=== PATIENT | male | born 1945 | race Caucasian/White ===

== ENCOUNTER 2016-06-23 06:11 | Day surgery (SDC) | payer MEDICARE, OTHER ==
[~2016-06-23] VITALS: Ht 182.9 cm; Wt 71.2 kg
[~2016-06-23 06:11] MED LIST: ALFU10TA7 PO; CARB-47 PO; MULT-933 PO; RASA1TAB2 PO; SAW450CA4 PO; SILD100T; SUCR1TAB20 PO
--- OUTSIDE RECORDS SUMMARY | 2016-06-23 06:15 | XMS REPORT | Summary of Care ---
Author Author Jaylen Gustafson M.D. Organization Unknown Address [address] [place] [address] JAG Purvis [address] Phone Unavailable Care Team Providers Care Equip Maint Eng Name Role Phone Jaylen Gustafson M.D. Unavailable Unavailable Sammy Monte M.D. Unavailable Unavailable Srikanth Dominguez Unavailable Unavailable Unavailable Unavailable Functional Status Name Dates Details Functional status health issues are not documented Status: Name Dates Details Cognitive status health issues are not documented Status: Problems Name Dates Details Prostate disorder (602.9, N42.9) Status: Active Muscle spasm (728.85, M62.838) Status: Active Dystonia (781.0, G24.9) Status: Active BPH with obstruction/lower urinary tract symptoms (600.01, N40.1) Status: Active Parkinson's disease (332.0, G20) Status: Active Medications Name Dates Details Carbidopa-Levodopa 25-100 MG Oral Tablet Take 1/2 tablet 3 times daily * Start 12-Dec-2014 Active Azilect 1 MG Oral Tablet TAKE 1 TABLET DAILY. * Refills: 0 Mike Monte M.D. Start 12-Dec-2014 Active Sucralfate 1 GM Oral Tablet TAKE 1 TABLET 4 times daily * Refills: 0 Mike Monte M.D. Start 12-Dec-2014 Active Saw Sylmar 450 MG Oral Capsule Take 1 capsule twice daily * Refills: 0 Mike Monte M.D. Start 12-Dec-2014 Active Alfuzosin HCl ER 10 MG Oral Tablet Extended Release 24 Hour TAKE 1 TABLET DAILY. * Refills: 0 Lavell Verdugo, Mike Haskins Start 12-Dec-2014 Active Viagra 50 MG Oral Tablet TAKE 1 TABLET DAILY 1 HOUR BEFORE NEEDED * Refills: 0 Lavell Verdugo, Mike Haskins Start 12-Dec-2014 Active Multivitamin Men Oral Tablet TAKE 1 TABLET DAILY. * Refills: 0 Jaylen Gustafson M.D. Start 20-Jan-2016 Active Allergies and Adverse Reactions Name Dates Details No Known Drug Allergies (Allergy) Status: Active Past Medical History Name Dates Details History of Childhood asthma (493.00, J45.909) Status: Resolved History of dizziness (V13.89, Z87.898) Status: Resolved History of Lewy body Parkinson's disease (332.0, G31.83) Status: Resolved History of malignant neoplasm of skin (V10.83, Z85.828) Status: Resolved History of Neck pain (723.1, M54.2) Status: Resolved History of seasonal allergies (V15.09, Z88.9) Status: Resolved Procedures Procedure Dates Details History of Colonoscopy History of Hernia Repair History of Diagnostic Esophagogastroduodenoscopy Procedures not documented Immunization Name Dates Details Immunizations not documented Family History Name Dates Details Family history of dementia (V17.2, Z81.8) Status: Active Name Dates Details Family history of skin cancer (V16.8, Z80.8) Status: Active Social History Name Dates Details - Status: Name Dates Details Never smoker Vital Signs Date Test Result Details 20-Jan-2016 15:17 BP Systolic 117 mm[Hg] Status: Comments: Location: ; Position: BP Diastolic 75 mm[Hg] Status: Comments: Location: ; Position: Heart Rate 74 /min Status: Comments: Location: ; Height 72 in Status: Weight 165 lb Status: Body Mass Index Calculated 22.38 kg/m2 Status: Body Surface Area Calculated 1.96 m2 Status: Results Date Description Value Details Results not documented Plan of Care Name Dates Details Planned Observations Planned Goals not documented Planned Encounters Appointment; Provider: Jaylen Gustafson M.D. On 20-Jan-2017 15:45 Appointment; Provider: Mike Monte M.D. On 23-May-2016 15:00 Instructions Name Dates Details Instructions not documented Encounters Appointment; iMke Monte M.D. Encounter Diagnosis: Problem not documented On 23-Nov-2015 14:00 Appointment; Mike Monte M.D. Encounter Diagnosis: Problem not documented On 19-May-2015 15:30 Appointment; Mike Monte M.D. Encounter Diagnosis: Problem not documented On 12-Dec-2014 11:00
--- OUTSIDE RECORDS SUMMARY | 2016-06-23 06:15 | XMS REPORT | Summary of Care ---
Author Author Mike Monte M.D. Organization Unknown Address Unknown Phone Unavailable Care Team Providers Care Skatesman Name Role Phone Lavell Verdugo, Sammy Unavailable Unavailable Srikanth Dominguez Unavailable Unavailable Unavailable Unavailable Functional Status Name Dates Details Functional status health issues are not documented Status: Name Dates Details Cognitive status health issues are not documented Status: Problems Name Dates Details Prostate disorder (602.9, N42.9) Status: Active Parkinson's disease (332.0, G20) Status: Active Medications Name Dates Details Carbidopa-Levodopa 25-100 MG Oral Tablet Take 1/2 tablet 3 times daily * Start 12-Dec-2014 Active Azilect 1 MG Oral Tablet TAKE 1 TABLET DAILY. * Refills: 0 Mike Monte M.D. Start 12-Dec-2014 Active Sucralfate 1 GM Oral Tablet TAKE 1 TABLET 3 times daily * Refills: 0 Mike Monte M.D. Start 12-Dec-2014 Active Saw [place] 450 MG Oral Capsule Take 1 capsule twice daily * Refills: 0 Mike Monte M.D. Start 12-Dec-2014 Active Folic Acid 1 MG Oral Tablet Take 1 tablet daily * Refills: 0 Mike Monte M.D. Start 12-Dec-2014 Active Alfuzosin HCl ER 10 MG Oral Tablet Extended Release 24 Hour TAKE 1 TABLET DAILY. * Refills: 0 Mike Monte M.D. Start 12-Dec-2014 Active Viagra 50 MG Oral Tablet TAKE 1 TABLET DAILY 1 HOUR BEFORE NEEDED * Refills: 0 Mike Monte M.D. Start 12-Dec-2014 Active Cyclobenzaprine HCl - 10 MG Oral Tablet TAKE 1 TABLET AT BEDTIME. * Quantity: 90 Refills: 3 Mike Monte M.D. * Start 25-Jun-2015 Active Allergies and Adverse Reactions Name Dates [...] Resolved Procedures Procedure Dates Details History of Hernia Repair Procedures not documented Immunization Name Dates Details Immunizations not documented Family History Name Dates Details Family history of dementia (V17.2, Z81.8) Status: Active Name Dates Details Family history of skin cancer (V16.8, Z80.8) Status: Active Social History Name Dates Details - Status: Name Dates Details Never smoker Vital Signs Date Test Result Details 23-Nov-2015 14:11 BP Systolic 124 mm[Hg] Status: Comments: Location: ; Position: BP Diastolic 82 mm[Hg] Status: Comments: Location: ; Position: Heart Rate 80 /min Status: Comments: Location: ; Weight 163 lb Status: Body Mass Index Calculated 24.78 kg/m2 Status: Body Surface Area Calculated 1.87 m2 Status: Results Date Description Value Details Results not documented Plan of Care Name Dates Details Planned Observations Planned Goals not documented Planned Encounters Appointment; Provider: Mike Monte M.D. On 23-May-2016 15:00 Instructions Name Dates Details Instructions not documented Encounters Appointment; Mike Monte M.D. Encounter Diagnosis: Problem not documented On 19-May-2015 15:30 Appointment; Mike Monte M.D. Encounter Diagnosis: Problem not documented On 12-Dec-2014 11:00
--- OUTSIDE RECORDS SUMMARY | 2016-06-23 06:15 | XMS REPORT | Continuity of Care Document ---
Author Author [facility] Organization [facility] Address Unknown Phone Unavailable Allergies Active Description Code Type Severity Reaction Onset Reported/Identified Relationship to Patient Clinical Status Yes No Known Medication Allergies NKMA N/A N/A Medications Problems Procedures Results Encounters ACCT No. Visit Date/Time Discharge Status Pt. Type Provider Facility Loc./Unit Complaint [id number] 01/02/2015 15:38:00 2014 23:59:00 DIS Outpatient Casey Whitfield [facility] 1-year [id number] 01/03/2014 15:40:00 2013 23:59:00 DIS Outpatient Casey Whitfield [facility] From IDX: [id number] YR RCK PSA
--- OUTSIDE RECORDS SUMMARY | 2016-06-23 06:16 | XMS REPORT | Referral Summary ---
Author Author [facility] Organization [facility] Address Unknown Phone Unavailable Care Team Providers Care Cinder Block Mason Name Role Phone Maximo Carter Primary Care Physician [phone] Encounter [facility] [id number] Date(s): 01/02/15 - 01/02/15 [facility] [address] [place] [address] JAG Purvis [address] Discharge Diagnosis: BPH with obstruction/lower urinary tract symptoms Discharge Diagnosis: BPH with obstruction/lower urinary tract symptoms Discharge Diagnosis: Parkinson's disease Discharge Disposition: 01-Home or Self Care Attending Physician: Casey Whitfield JR, MD Admitting Physician: Casey Whitfield JR, MD Vital Signs Most recent to 1 oldest [Reference Range]: Peripheral Pulse 68 bpm Rate [60-100 bpm] (01/02/15 3:43 PM) Blood Pressure 108/68 mmHg [90-140/60-90 mmHg] (01/02/15 3:43 PM) Problem List No data available for this section Allergies, Adverse Reactions, Alerts No Known Medication Allergies Medications alfuzosin 10 mg oral tablet, extended release See Instructions, TAKE 1 TABLET AT BEDTIME, # 90 tabs, eRx: [facility], TAKE 1 TABLET AT BEDTIME Start Date: 12/19/14 Status: Ordered ALFUZOSIN HCL ER TABS 10MG See Instructions, TAKE 1 TABLET AT BEDTIME, # 90 tabs, eRx: [facility], TAKE 1 TABLET AT BEDTIME Start Date: 10/08/14 Status: Ordered Azilect 1 mg oral tablet mg tabs, Oral, Daily, 0 Refill(s) Start Date: 01/02/15 Status: Ordered Carafate g, Oral, QIDACHS, 0 Refill(s) Start Date: 01/03/14 Status: Ordered Centrum Silver Daily, 0 Refill(s) Start Date: 01/02/15 Status: Ordered saw palmetto oral capsule 0 Refill(s) Start Date: 01/03/14 Status: Ordered Sinemet 25 mg-100 mg oral tablet tabs, Oral, TID, 0 Refill(s) Start Date: 01/02/15 Status: Ordered Viagra 100 mg oral tablet See Instructions, as needed for erectile dysfunction, 1 tabs orally as needed. 1 hour before sexual activity, # 30 tabs, 5 Refill(s), Pharmacy: [facility], 1 tabs orally as needed. 1 hour before sexual activity, PRN:as needed for er... Start Date: 01/02/15 Status: Ordered Results No data available for this section Immunizations No data available for this section Procedures Procedure Date Related Diagnosis Body Site Hernia repair Social History Social History Type Response Smoking Status Never smoker Assessment and Plan Extracted from: Title: Ambulatory Patient Education Author: Casey Whitfield JR, MD Date : 01/02/15 Follow Up With: Where: When: Jeff Carter [address] [place] [address] [address] [place] [address] Business (1) Within 3 to 5 days Comments: Follow Up With: Where: When: Casey [facility]; [place] [address] Business (1) In 1 year 01/03/2016 Comments: Extracted from: Title: Office Visit Note Author: Casey Whitfield JR, MD Date: 01/02/15 Assessment/Plan 1.BPH with obstruction/lower urinary tract symptoms, BPH with obstruction/ lower urinary tract symptoms continue alfuzosin. Recheck in my office in a year, PSA a week before next visit Ordered: Office Visit Level 3 Est 73015 2.Parkinson's disease continue carbidopa and levodopa and Azilect. For the erectile dysfunction continue Viagra 100 mg one hour prior to sexual intercourse. New prescription was called to the patient. Also I called a new prescription for the alfuzosin Orders: sildenafil, See Instructions, as needed for erectile dysfunction, 1 tabs orally as needed. 1 hour before sexual activity, # 30 tabs, 5 Refill(s), Pharmacy: [facility], 1 tabs orally as needed. 1 hour before sexual activity,PRN:as needed for er...
--- OUTSIDE RECORDS SUMMARY | 2016-06-23 06:16 | XMS REPORT | Continuity of Care Document ---
Author Author [facility] Organization [facility] Address Unknown Phone Unavailable Support Name Relationship Address Phone MALDONADO MORAN MD Caregiver [address] [place] [address] [address] [place] [phone] KAITY SANFORD MD Caregiver [facility]LAST[facility] SURGERY [address] [place] [address] YARA TERESA [address] [place] [address] ALEKSANDR SOTOMAYOR Next Of Kin [address] [place] [address] CP Insurance Providers Payer Name Policy Number Subscriber Name Relationship Medicare [id number] Rosa Isela Sotomayor 18 Self Medicare Supp Wps [id number] Rosa Isela Sotomayor 18 Self Advance Directives Directive Response Recorded Date/Time Ordered Resuscitation Status Full Code 04/22/14 10:22am Resuscitation Documents on File No 04/22/14 8:37am Problems No known problems or medical conditions. Medications Medication Dose Route Sig Days/Qty Instructions Order Date Discontinued Date Status Alfuzosin Hcl 10 Mg PO DAILY 03/02/09 Active Saw [place] Fruit 320 Mg PO DAILY 09/04/13 04/22/14 Discontinued [Carafate] 1 G PO FOUR TIMES DAILY 09/04/13 02/04/14 Discontinued [Viagra] 25 Mg PO NEEDED 09/04/13 02/04/14 Discontinued Sucralfate 1 G PO DAILY 02/04/14 Active Saw [place] Fruit 1 Cap PO DAILY 04/22/14 Active Carbidopa/Levodopa 0.5 Tab PO THREE TIMES DAILY/EMPTY STOMAC BEST ON AN EMPTY STOMACH. 04/22/14 Active Acetaminophen with Codeine 1-2 Tab PO Every 6 Hours PRN PAIN 20 Qty 12/28 Active Cephalexin 500 Mg PO THREE TIMES A DAY 6 Qty 04/23/14 Active Social History Social History Problem Response Recorded Date/Time Chewing Tobacco Status N 15 yrs ago 11/01/2011 11:51am Hx Substance Use No 04/22/2014 8:38am Hx Alcohol Use Y SELDOM 04/22/2014 8:38am Has the pt used tobacco in the last 12 months No 04/22/2014 8:38am Query Response Start Date Stop Date Smoking Status Never smoker Hospital Discharge Instructions No hospital discharge instructions. Plan of Care No plan of care. Functional Status No functional status results. Allergies, Adverse Reactions, Alerts Allergen Type Severity Reaction Status Last Updated NKDA Allergy Unknown Active 02/27/09 Immunizations Name Given Type Hx Influenza Vaccination Y Fall 2013 Historical Hx Pneumococcal Vaccination fall Historical Hx Influenza Vaccination fall Historical Vital Signs Acute Vital Signs Vital Response Date/Time Temperature (Fahrenheit) 97.9 deg F (96.8 - 99.1) Temperature (Calculated Celsius) 36.25507 degrees C (36.0 - 37.3) Temperature Source Temporal Pulse Rate (adult) 62 bpm (60 - 100) Respiratory Rate 16 breaths/min (10 - 20) O2 Sat by Pulse Oximetry 95 % (90 - 100) Oxygen Delivery Method Room Air Blood Pressure 113/70 mm Hg Blood Pressure Source Automatic Cuff Height 6 ft 0 in Weight 160 lb Body Mass Index 21.0 kg/m^2 Results Test Source Date Result Interp. Ref. Range Comments Prostate Specific Antigen December 28, 2012 4:18pm 0.99 NG/ML N 0-4.0 Prostate Specific Antigen Screen June 19, 2010 10:57am 1.40 NG/ML N 0- 4.0 Lab Scanned Report December 28, 2012 8:00pm LAB TEST FORM REQUEST [id number] - Helicobacter pylori Rapid Urease Gastric Biopsy October 20, 2011 9:05am Name: ROSA ISELA SOTOMAYOR Unit #: [id number] : 1945 Sex: M Loc / Svc: ROGERIO DOS: 03/20/14 Signed Report #: [id number] DIAGNOSTIC IMAGING REPORT TYPE OF EXAM: MRI BRAIN W/O CONTRAST Dictated By: WILFREDO ROSAS MD Indication: ITS.REASON: 332.0 PARKINSON'S; 784.0 HEAD ACHE MRI BRAIN W/O CONTRAST: Comparisons: None. Technique: Multiplanar, multisequence, MR imaging of the head without contrast was acquired. FINDINGS: The ventricles are of normal size, shape, and contour for the patient's age. There are small nonspecific punctate areas of T2-weighted and T2 FLAIR weighted signal abnormality in the deep frontoparietal white matter that most likely represent small vessel ischemic disease. This is of a degree that is considered to be normal for the patient's age. The brain stem, cerebellum, and cerebral hemispheres otherwise have a normal morphologic appearance as well as MR signal intensity on all pulse sequences. There are no areas of restricted diffusion on diffusion weighted imaging to suggest an acute infarct. There is no evidence of an intracranial mass lesion, intracranial hemorrhage, or hydrocephalus. The visualized portions of the orbits, calvarium, paranasal sinuses, and skull base demonstrate no significant abnormality. IMPRESSION: Unremarkable MRI of the head for the patient's age without contrast. . Procedures Procedure Status Date Provider(s) EXC F/E/E/N/L MAL+MRG 3.1-4 completed 02/05/14 KAITY SANFORD MD INTMD RPR FACE/MM 2.5 CM/< completed 02/05/14 KAITY SANFORD MD CMPLX RPR F/C/C/M/N/AX/G/H/F completed 02/05/14 KAITY SANFORD MD TISSUE EXAM BY PATHOLOGIST completed 02/05/14 PATH CONSULT INTRAOP 1 BLOC completed 02/05/14 PATH CONSULT INTRAOP ADDL completed 02/05/14"INJECTION, CEFAZOLIN SODIUM, 500 MG" completed 02/05/14"INJECTION, MIDAZOLAM HYDROCHLORIDE, PER 1 MG" completed 02/05/14474506"INJECTION, MIDAZOLAM HYDROCHLORIDE, PER 1 MG" completed 02/05/14699432"INJECTION, FENTANYL CITRATE, 0.1 MG" completed 02/05/14963801"INJECTION, FENTANYL CITRATE, 0.1 MG" completed 02/05/14074750"RINGERS LACTATE INFUSION, UP TO 1000 CC" completed 02/05/14 MRI BRAIN STEM W/O DYE completed 03/20/14 Excision of lesion completed 04/23/14 KAITY SANFORD MD Encounters Encounter Location Date/Time Registered Clinic [facility] 03/20/14 12:25pm
--- OUTSIDE RECORDS SUMMARY | 2016-06-23 06:16 | XMS REPORT | Continuity of Care Document ---
Author Author [facility] Organization [facility] Address Unknown Phone Unavailable Support Name Relationship Address Phone MALDONADO MORAN MD Caregiver [address] [place] [address] [address] [place] [phone] KAITY SANFORD MD Caregiver [facility] PLASTIC SURGERY [address] [place] [address] [address] [place] [address] ALEKSANDR SOTOMAYOR Next Of Kin [address] [place] [address] CP Insurance Providers Payer Name Policy Number Subscriber Name Relationship Medicare [id number] Rosa Isela Sotomayor 18 Self Medicare Supp Wps [id number] Rosa Isela Sotomayor 18 Self Advance Directives Directive Response Recorded Date/Time Ordered Resuscitation Status Full Code 02/04/14 12:46pm Resuscitation Documents on File No 02/04/14 9:42am Problems No known problems or medical conditions. Medications Medication Dose Route Sig Days/Qty Instructions Order Date Discontinued Date Status Alfuzosin Hcl 10 Mg PO DAILY 03/02/09 Active Saw [place] Fruit 320 Mg PO DAILY 09/04/13 Active [Carafate] 1 G PO FOUR TIMES DAILY 09/04/13 02/04/14 Discontinued [Viagra] 25 Mg PO NEEDED 09/04/13 02/04/14 Discontinued Sucralfate 1 G PO FOUR TIMES DAILY Take 1 tablet, by mouth, 4 times a day as needed. 02/04/14 Active Sildenafil Citrate 25 Mg PO NEEDED 02/04/14 Active Social History Social History Problem Response Recorded Date/Time Chewing Tobacco Status N 15 yrs ago 11/01/2011 11:51am Hx Substance Use No 02/04/2014 9:43am Hx Alcohol Use Y 1-2/DAY 02/04/2014 9:43am Has the pt used tobacco in the last 12 months No 02/04/2014 9:43am Query Response Start Date Stop Date Smoking [...] Vital Signs Vital Response Date/Time Temperature (Fahrenheit) 98.4 deg F (96.8 - 99.1) Temperature (Calculated Celsius) 36.86403 degrees C (36.0 - 37.3) Temperature Source Temporal Pulse Rate (adult) 62 bpm (60 - 100) Respiratory Rate 16 breaths/min (10 - 20) O2 Sat by Pulse Oximetry 94 % (90 - 100) Oxygen Delivery Method Room Air Blood Pressure 102/56 mm Hg Blood Pressure Source Automatic Cuff Height 6 ft 0 in Weight 163 lb Body Mass Index 22.0 kg/m^2 Results Test Source Date Result Interp. Ref. Range Comments Prostate Specific Antigen December 28, 2012 4:18pm 0.99 NG/ML N 0-4.0 Prostate Specific Antigen Screen June 19, 2010 10:57am 1.40 NG/ML N 0- 4.0 Lab Scanned Report December 28, 2012 8:00pm LAB TEST FORM REQUEST [id number] - Helicobacter pylori Rapid Urease Gastric Biopsy October 20, 2011 9:05am Procedures Procedure Status Date Provider(s) Excision of lesion completed 02/05/14 KAITY SANFORD MD
--- OUTSIDE RECORDS SUMMARY | 2016-06-23 06:16 | XMS REPORT | Continuity of Care Document ---
Author Author [facility]GARDO [facility] Organization [facility] Address Unknown Phone Unavailable Support Name Relationship Address Phone DORIE WASHINGTON MD Caregiver [address] [facility] [address] [place] [address] Unavailable VIANEY CHADWICK MD Caregiver [address] [facility] [address] [place] [address] Unavailable ALEKSANDR SOTOMAYOR Next Of Kin [address] [place], [place] [id number] CP Insurance Providers Guarantor Rosa Isela Sotomayor Address [address] [place] [address] Email DENIED/NO TO PT PORT Payer [employer] Medicare Supp Wps Policy Number [id number] Subscriber's Name Rosa Isela Sotomayor Relationship 18 Self Effective Date 10 Payer Medicare Policy Number [id number] Subscriber's Name Rosa Isela Sotomayor Relationship 18 Self Advance Directives Directive Response Recorded Date/Time Ordered Resuscitation Status Full Code, unverified 07/01/15 1:14pm Resuscitation Documents on File No 07/01/15 1:06pm DPOA for Healthcare Only No 07/01/15 1:06pm Problems Active Problems Medical Problem Onset Date Status Precordial chest pain Unknown Syncope and collapse Unknown Medications Current Home Medications Medication Dose Units Route Directions Days Qty Instructions Start Date Alfuzosin Hcl (Uroxatral) 10 Mg Tab.sr.24h 10 Mg Oral Daily 03/02 Aspirin (Aspir 81) 81 Mg Tablet. 1 Tab Oral Daily 30 Tablet 06/30 Carbidopa/Levodopa (Sinemet 25-100 Mg Tablet) 1 Each Tablet 0.5 Tab Oral Three Times Daily/Empty [place] BEST ON AN EMPTY STOMACH. 04/22/14 Multivitamin (Multi-Day Vitamins) 1 Each Tablet 1 Tab Oral Daily 30 Tablet 07/01/15 Nitroglycerin 0.4 Mg Tab.subl 0.4 Mg Sublingual as needed for Angina 07/01/15 Saw [place] Fruit (Saw [place]) 450 Mg Capsule 1 Cap Oral Daily 04/22/14 Sildenafil Citrate (Viagra) 100 Mg Tablet 50 Mg As Needed 06/30 Sucralfate (Carafate) 1 Gm Tablet 1 G Oral Daily 02/04/14 Past Home Medications Medication Directions Ordered Status Carafate , 1 G Oral Four Times Daily 09/04/13 Discontinued Saw [place] Fruit (Saw [place]) 100 Gm Powder, 320 Mg Oral Daily 09/04/13 Discontinued Viagra , 25 Mg Oral As Needed 09/04/13 Discontinued Social History Social History Problem Response Recorded Date/Time Onset Date Status Chewing Tobacco Status N 15 yrs ago 11/01/2011 11:51am Not Applicable Not Applicable Hx Substance Use No 07/01/2015 1:08pm Not Applicable Not Applicable Hx Alcohol Use Y SELDOM 07/01/2015 1:08pm Not Applicable Not Applicable Has the pt used tobacco in the last 12 months No 07/01/2015 1:08pm Not Applicable Not Applicable Query Response Start Date Stop Date Smoking Status Never smoker Hospital Discharge Instructions Instructions: Care Instructions: Reason for Hospitalization: Precordial pain, syncope/collapse,heart catheterization I was in the hospital because (patient own words): "TO HAVE A HEART CATH" Discharge Diet: Resume regular diet Discharge Activity: No driving or operating heavy machinery for 24 hours. Keep wrist straight, wear the wrist splint x 24 hours. Follow Up Appointments: FOLLOW UP WITH DR. WASHINGTON IN 1 MONTH AT THE MAY OFFICE, CALL FOR AN APPOINTMENT. Pending Lab / Results: No Pending Lab Patient Instructions: No bending wrist for 24 hours, keep wrist splint on. Wound/Incision Care: You may remove wrist dressing tomorrow. Notify Physician If: Any signs of infection at the wrist insertion site: redness, swelling, increased pain, swelling Condition at time of discharge: Good Plan of Care Discharge Date 07/01/15 7:18pm Instructions/Education Provided [facility] Heart Cath Trans Rad Prescriptions See Medication Section Functional Status Query Response Date Recorded Mobility Status Ambulatory July 01, 2015 1:14pm Assistive Devices None July 01, 2015 1:14pm Activity Limitations Syncope/fainting July 01, 2015 1:14pm Feeding Ability Independent July 01, 2015 1:14pm Toileting Ability Independent July 01, 2015 1:14pm Grooming Ability Independent July 01, 2015 1:14pm Dressing Ability Independent July 01, 2015 1:14pm Driving Ability Independent July 01, 2015 1:14pm Housework Ability Independent July 01, 2015 1:14pm Meal Preparation Ability Independent July 01, 2015 1:14pm Stair Climbing Ability Independent July 01, 2015 1:14pm Ability to complete ADL's impeded by No change July 01, 2015 1:14pm Cognitive/Perceptual Impairments Impaired vision July 01, 2015 1:14pm Visual Assistive Devices Glasses With patient July 01, 2015 1:14pm Preferred Method of Learning Hands on July 01, 2015 1:14pm Allergies, Adverse Reactions, Alerts Allergen Type Severity Reaction Status Last Updated NKDA Allergy Unknown Active 07/01/15 Immunizations Query Response on File Recorded Date/Time Hx Influenza Vaccination Y fall 201407/01/15 1:08pm Hx Pneumococcal Vaccination Y FEB 2015 07/01/15 1:08pm Hx Influenza Vaccination Y fall 201407/01/15 1:08pm Influenza Vaccine Hx fall 201407/01/15 1:00pm Vital Signs Acute Vital Signs Vital Response Date/Time Temperature (Fahrenheit) 97.5 deg F (96.8 - 99.1) 07/01/2015 4:15pm Temperature (Calculated Celsius) 36.04094 degrees C (36.0 - 37.3) 07/01/2015 4:15pm Temperature Source Oral 07/01/2015 4:15pm Pulse Rate (adult) 70 bpm (60 - 100) 07/01/2015 6:15pm Respiratory Rate 18 breaths/min (10 - 20) 07/01/2015 6:15pm O2 Sat by Pulse Oximetry 97 % (90 - 100) 07/01/2015 6:15pm Oxygen Delivery Method Room Air 07/01/2015 6:15pm Blood Pressure 104/69 mm Hg 07/01/2015 6:15pm Blood Pressure Source Automatic Cuff 07/01/2015 6:15pm Height (Feet) 5 feet 07/01/2015 1:01pm Height (Inches) 11.00 inches 07/01/2015 1:01pm Weight (Kilograms) 69.100 kg 07/01/2015 1:01pm Body Mass Index (BMI) 21.3 07/01/2015 1:01pm Results Laboratory Results Test Name Result Units Flags Reference Collection Date/Time Result Date/ Time Comments Urine Collection Type VOIDED-NOT CC-MIDSTR 06/30/2015 4:00pm 2015 4:33pm Urine Color YELLOW YELLOW 06/30/2015 4:00pm 06/30/2015 4:33pm Urine Turbidity CLEAR CLEAR 06/30/2015 4:00pm 06/30/2015 4:33pm Urine Specific [place] 1.010 L 1.015-1.025 06/30/2015 4:00pm 2015 4:33pm Urine pH 6.5 5.0-8.0 06/30/2015 4:00pm 06/30/2015 4:33pm Urine Leukocyte Esterase NEGATIVE NEGATIVE 06/30/2015 4:00pm 2015 4:33pm Urine Nitrite NEGATIVE NEGATIVE 06/30/2015 4:00pm 06/30/2015 4:33pm Urine Protein NEGATIVE NEGATIVE 06/30/2015 4:00pm 06/30/2015 4:33pm Urine Glucose (UA) NEGATIVE NEGATIVE 06/30/2015 4:00pm 06/30/2015 4: 33pm Urine Ketones NEGATIVE NEGATIVE 06/30/2015 4:00pm 06/30/2015 4:33pm Urine Urobilinogen 0.2 EU/DL NORMAL 06/30/2015 4:00pm 06/30/2015 4: 33pm Urine Bilirubin NEGATIVE NEGATIVE 06/30/2015 4:00pm 06/30/2015 4: 33pm Urine Blood NEGATIVE NEGATIVE 06/30/2015 4:00pm 06/30/2015 4:33pm Urine WBC NONE SEEN /HPF 0-5 06/30/2015 4:00pm 06/30/2015 4:46pm Urine RBC NONE SEEN /HPF 0-3 06/30/2015 4:00pm 06/30/2015 4:46pm Urine Squamous Epithelial Cells 0-5 06/30/2015 4:00pm 06/30/2015 4: 46pm Urine Bacteria NONE SEEN NEGATIVE 06/30/2015 4:00pm 06/30/2015 4: 46pm Urine Culture Indicated CULT NOT INDICATED 06/30/2015 4:00pm 2015 4:46pm White Blood Count 5.1 T/MM3 4.5-11.0 07/01/2015 1:32pm 07/01/2015 1: 38pm Red Blood Count 4.21 M/MM3 L 4.50-5.90 07/01/2015 1:32pm 07/01/2015 1: 38pm Hemoglobin 13.2 GM/DL L 13.5-17.5 07/01/2015 1:[facility] 07/01/2015 1:38pm Hematocrit 40.1 % L 41-53 07/01/2015 1: 07/01/2015 1:38pm Mean Corpuscular Volume 95.2 UM3 80-100 07/01/2015 1:[facility] 07/01/2015 1: 38pm Mean Corpuscular Hemoglobin 31.4 UUG 26-34 07/01/2015 1: 2015 1:38pm Mean Corpuscular Hemoglobin Concent 32.9 GM/DL 31-37 07/01/2015 1:[facility] 07/01/2015 1:38pm RDW Standard Deviation 43.0 FL 36.9-50.2 07/01/2015 1: 07/01/2015 1 :38pm Platelet Count 207 T/MM3 130-400 07/01/2015 1:[facility] 07/01/2015 1:38pm Mean Platelet Volume 9.7 UM3 9.4-12.4 07/01/2015 1:[facility] 07/01/2015 1: 38pm Neutrophils (%) (Auto) 61.3 % 33-66 07/01/2015 1:[facility] 07/01/2015 1: 38pm Lymphocytes (%) (Auto) 24.0 % 23-45 07/01/2015 1:[facility] 07/01/2015 1: 38pm Monocytes (%) (Auto) 12.1 % H 0-9.0 07/01/2015 1:[facility] 07/01/2015 1:38pm Eosinophils (%) (Auto) 2.0 % 0-4 07/01/2015 1:[facility] 07/01/2015 1:38pm Basophils (%) (Auto) 0.6 % 0-2 07/01/2015 1:[facility] 07/01/2015 1:38pm Immature Granulocyte % (Auto) 0.0 % 0.0-0.5 07/01/2015 1:[facility] 2015 1:38pm Absolute Neutrophils (auto) 3.1 T/MM3 1.8-7.7 07/01/2015 1:[facility] 2015 1:38pm Absolute Lymphocytes (auto) 1.2 T/MM3 1-4.8 07/01/2015 1:2015 1:38pm Absolute Monocytes (auto) 0.6 T/MM3 0-0.8 07/01/2015 1:07/01/2015 1:38pm Absolute Eosinophils (auto) 0.1 T/MM3 0-0.5 07/01/2015 1:2015 1:38pm Absolute Basophils (auto) 0.0 T/MM3 0-0.2 07/01/2015 1:07/01/2015 1:38pm Absolute Immature Granulocyte (auto 0.00 T/MM3 0.00-0.03 07/01/2015 1: 07/01/2015 1:38pm Prothromb Time International Ratio 1.09 0.81-1.09 07/01/2015 1:5207/01/2015 2:05pm THERAPUTIC RANGE=2.00-3.00 FOR ANTI-THROMBOSIS THERAPUTIC RANGE=2.50-3.50 FOR IMPLANTED VALVE Icterus Index < 2 0-7 07/01/2015 1:07/01/2015 2:10pm Chemistry Specimen Hemolysis < 15 0-25 07/01/2015 1:07/01/2015 2 :10pm 0-25: Specimen Exhibited No Hemolysis. Turbidity < 20 0-20 07/01/2015 1:pm 07/01/2015 2:10pm Sodium Level 140 MEQ/L 134-144 07/01/2015 1:07/01/2015 2:10pm Potassium Level 4.1 MEQ/L 3.6-5 07/01/2015 1:07/01/2015 2:10pm Chloride Level 102 MEQ/L 98-107 07/01/2015 1:07/01/2015 2:10pm Carbon Dioxide Level 30 MEQ/L 22-30 07/01/2015 1:07/01/2015 2: 10pm Anion Gap 8 MEQ/L 5-15 07/01/2015 1:pm 07/01/2015 2:10pm Blood Urea Nitrogen 13.0 MG/DL 9-20 07/01/2015 1:pm 07/01/2015 2: 10pm Creatinine 0.7 MG/DL L 0.8-1.5 07/01/2015 1:07/01/2015 2:10pm BUN/Creatinine Ratio 19 RATIO 6-26 07/01/2015 1:52pm 07/01/2015 2:10pm Glomerular Filtration Rate Calc 112 07/01/2015 1:52pm 07/01/2015 2: 10pm Glucose Level 96 MG/DL 75-110 07/01/2015 1:52pm 07/01/2015 2:10pm Calculated Osmolality 269 MOSM/KG 261-280 07/01/2015 1:52pm 07/01/2015 2:10pm Calcium Level 9.0 MG/DL 8.4-10.2 07/01/2015 1:52pm 07/01/2015 2:10pm Total Bilirubin 0.50 MG/DL 0.20-1.30 07/01/2015 1:52pm 07/01/2015 2: 10pm Alkaline Phosphatase 67 U/L 38-126 07/01/2015 1:52pm 07/01/2015 2:10pm Total Protein 7.1 G/DL 6.3-8.2 07/01/2015 1:52pm 07/01/2015 2:10pm Albumin 4.0 G/DL 3.5-5.0 07/01/2015 1:52pm 07/01/2015 2:10pm Globulin 3.1 G/DL 2.4-3.6 07/01/2015 1:52pm 07/01/2015 2:10pm Albumin/Globulin Ratio 1.3 RATIO 1.1-2.2 07/01/2015 1:52pm 07/01/2015 2 :10pm Aspartate Amino Transf (AST/SGOT) 33 U/L 17-59 07/01/2015 1:52pm 2015 2:10pm Alanine Aminotransferase (ALT/SGPT) 12 U/L L 21-72 07/01/2015 1:52pm 2:10pm Reason Tests Not Done HEMOLYZED SPECIMEN 07/01/2015 1:48pm 2015 1:49pm Tests Not Done CMP, INR, LIPID 07/01/2015 1:48pm 07/01/2015 1:49pm Specimen Comment (Misc) LAB TO RECOLLECT 07/01/2015 1:48pm 2015 1:49pm Procedures No known history of procedures. Encounters Encounter Location Arrival/Admit Date Discharge/Depart Date Attending Provider Departed Clinic [facility] 07/01/15 12:34pm 07/01/15 7:18pm DORIE WASHINGTON MD Registered Referred [facility] 06/30/15 4:28pm VIANEY CHADWICK MD Recent Diagnosis Precordial chest pain Syncope and collapse
--- OUTSIDE RECORDS SUMMARY | 2016-06-23 06:16 | XMS REPORT | Summary of Care ---
Author Author Mike Monte M.D. Organization Unknown Address Unknown Phone Unavailable Care Team Providers Care Warp Worker Name Role Phone Jaylen Gustafson M.D. Unavailable [...] Dates Details Carbidopa-Levodopa 25-100 MG Oral Tablet TAKE 1 TABLET 3 times daily Quantity: 270 Mike Monte M.D. Start 12-Dec-2014 Active Azilect 1 MG Oral Tablet TAKE 1 TABLET DAILY. * Refills: 0 Mike Monte M.D. Start 12-Dec-2014 Active Sucralfate 1 GM Oral Tablet TAKE 1 TABLET 4 times daily * Refills: 0 Mike Monte M.D. Start 12-Dec-2014 Active Saw [place] 450 MG Oral Capsule Take 1 capsule [...] 0 Mike Monte M.D. Start 12-Dec-2014 Active Multivitamin Men Oral Tablet TAKE 1 TABLET DAILY. * Refills: 0 Jaylen Gustafson M.D. Start 20-Jan-2016 Active Allergies and Adverse Reactions Name Dates Details No Known Drug Allergies (Allergy) Status: Active Past Medical History Name Dates Details History of Childhood asthma (493.00, J84.909) Status: Resolved History of dizziness (V13.89, Z87.898) [...] smoker Vital Signs Date Test Result Details 23-May-2016 15:24 BP Systolic 120 mm[Hg] Status: Comments: Location: ; Position: BP Diastolic 70 mm[Hg] Status: Comments: Location: ; Position: Heart Rate 60 /min Status: Comments: Location: ; Weight 162 lb Status: Body Mass Index Calculated 21.97 kg/m2 Status: Body Surface Area Calculated 1.95 m2 Status: Results Date Description Value Details Results not documented Plan of Care Name Dates Details Planned Observations Planned Goals not documented Planned Encounters Appointment; Provider: Mike Monte M.D. On 21-Nov-2016 10:30 Interventions Provided Medication Changes* Carbidopa-Levodopa 25-100 MG Oral Tablet - Renew Instructions Name Dates Details Instructions not documented Encounters Appointment; Jaylen Gustafson M.D. Encounter Diagnosis: Problem not documented On 20-Jan-2016 14:45 Appointment; Mike Monte M.D. Encounter Diagnosis: Problem not documented On 23-Nov-2015 14:00 Appointment; Mike Monte M.D. Encounter Diagnosis: Problem not documented On 19-May-2015 15:30 Appointment; Mike Monte M.D. Encounter Diagnosis: Problem not documented On 12-Dec-2014 11:00
--- OUTSIDE RECORDS SUMMARY | 2016-06-23 06:16 | XMS REPORT | Summary of Care ---
Author Author Mike Monte M.D. Organization Unknown Address [address] [place], [place] [id number] Phone Unavailable Care Team Providers Care Scrap Iron Loader Name Role Phone Lavell Verdugo, Sammy Unavailable Unavailable Srikanth Dominguez PP Unavailable Functional Status Functional Status Health Issues* Name Dates Details Functional status health issues are not documented Status: Cognitive Status Health Issues* Name Dates Details Cognitive status health issues are not documented Status: Problems Name Dates Details Prostate disorder (602.9, N42.9) Status: Active Parkinson's disease (332.0, G20) Status: Active Medications Name Dates Details Carbidopa-Levodopa 25-100 MG Oral Tablet TAKE 1 TABLET 3 TIMES DAILY. Mike Monte M.D.* Started 12-Dec-2014 ActiveAzilect 1 MG Oral Tablet TAKE 1 TABLET DAILY. * Refills: 0 Mike Monte M.D.* Started 12-Dec-2014 ActiveSucralfate 1 GM Oral Tablet TAKE 1 TABLET 3 times daily * Refills: 0 Mike Monte M.D.* Started 12-Dec-2014 ActiveSaw [place] 450 MG Oral Capsule Take 1 capsule twice daily * Refills: 0 Mike Monte M.D.* Started 12-Dec-2014 ActiveFolic Acid 1 MG Oral Tablet Take 1 tablet daily * Refills: 0 Mike Monte M.D.* Started 12-Dec-2014 ActiveVitamin D3 2000 UNIT Oral Tablet Take 1 tablet daily * Refills: 0 Mike Monte M.D.* Started 12-Dec-2014 ActiveAlfuzosin HCl ER 10 MG Oral Tablet Extended Release 24 Hour TAKE 1 TABLET DAILY. * Refills: 0 Mike Monte M.D.* Started 12-Dec-2014 ActiveBaclofen 10 MG Oral Tablet TAKE 1 TABLET Bedtime * Quantity: 30 Refills: 0 Mike Monte M.D.* Started 12-Dec-2014 ActiveViagra 50 MG Oral Tablet TAKE 1 TABLET DAILY 1 HOUR BEFORE NEEDED * Refills: 0 Mike Monte M.D.* Started 12-Dec-2014 Active Allergies and Adverse Reactions Name Dates Details No Known Drug Allergies Status: Active Past Medical History Name Dates Details History of Childhood asthma (493.00, J45.909) Status: Resolved History of dizziness (V13.89, Z87.898) Status: Resolved History of Lewy body Parkinson's disease (332.0, G20) Status: Resolved History of malignant neoplasm of skin (V10.83, Z85.828) Status: Resolved History of Neck pain (723.1, M54.2) Status: Resolved History of seasonal allergies (V15.09, Z88.9) Status: Resolved Procedures Procedure Dates Details History of Hernia Repair Procedures not documented Immunization Name Dates Details Immunizations not documented Family History Mother* Name Dates Details Family history of dementia (V17.2, Z81.8) Status: Active Father* Name Dates Details Family history of skin cancer (V16.8, Z80.8) Status: Active Social History Name Dates Details Smoking Status* Never smoker Vital Signs Date Test Result Details 12-Dec-2014 11:33 Height 68 in Status: Body Mass Index Calculated 23.57 kg/m2 Status: Body Surface Area Calculated 1.83 m2 Status: 12-Dec-2014 11:28 BP Systolic 110 mm[Hg] Status: BP Diastolic 60 mm[Hg] Status: Heart Rate 90 /min Status: Weight 155 lb Status: Results Date Description Value Details Results not documented Plan of Care Planned Observations* Name Dates Details Planned Goals not documented Goal Planned Encounters* Appointment; Provider: Mike Monte On 21-Apr-2015 10:30 Instructions * Instructions not documented Encounters Appointment; Mike Monte Encounter Diagnosis: Problem not documented On 12-Dec-2014 11:00
--- OUTSIDE RECORDS SUMMARY | 2016-06-23 06:16 | XMS REPORT | Summary of Care ---
Author Author Mike Monte M.D. Organization Unknown Address [address] [place], [place] [id number] Phone Unavailable Care Team Providers Care Kaiawhina Kohanga Reo Name Role Phone Lavell Verdugo, Sammy Unavailable [...] Take 1/2 tablet 3 times daily * Started 12-Dec-2014 ActiveAzilect 1 MG Oral Tablet TAKE 1 TABLET DAILY. * Refills: 0 Mike Monte M.D.* Started 12-Dec-2014 ActiveSucralfate 1 GM Oral Tablet TAKE 1 TABLET 3 times daily * Refills: 0 Mike Monte M.D.* Started 12-Dec-2014 ActiveSaw [place] 450 MG Oral Capsule Take 1 capsule [...] smoker Vital Signs Date Test Result Details 19-May-2015 15:23 BP Systolic 82 mm[Hg] Status: BP Diastolic 62 mm[Hg] Status: Heart Rate 70 /min Status: Weight 158 lb Status: Body Mass Index Calculated 24.02 kg/m2 Status: Body Surface Area Calculated 1.85 m2 Status: Results Date Description Value Details Results not documented Plan of Care Planned Observations* Name Dates Details Planned Goals not documented Goal Planned Encounters* Appointment; Provider: Mike Monte On 23-Nov-2015 14:00 Instructions * Instructions not documented Encounters Appointment; Mike Monte Encounter Diagnosis: Problem not documented On 19-May-2015 15:30 Appointment; Mike Monte Encounter Diagnosis: Problem not documented On 12-Dec-2014 11:00
--- OUTSIDE RECORDS SUMMARY | 2016-06-23 06:16 | XMS REPORT | Continuity of Care Document ---
Author Author [facility] Organization [facility] Address Unknown Phone Unavailable Support Name Relationship Address Phone MALDONADO MORAN MD Caregiver [address] [place] [address] [address] [place] [phone] GAMAL SCHMID MD Caregiver [facility] [address] [place] [address] YARA TERES[address] [place] [phone] ALEKSANDR SOTOMAYOR Next Of Kin [address] [place] [address] CP Insurance Providers Payer Name Policy Number Subscriber Name Relationship Medicare [id number] Rosa Isela Sotomayor 18 Self Medicare Supp Wps [id number] Rosa Isela Sotomayor 18 Self Advance Directives Directive Response Recorded Date/Time Ordered Resuscitation Status Full Code 09/04/13 4:59pm Problems No known problems or medical conditions. Medications Medication Dose Route Sig Days/Qty Instructions Order Date Discontinued Date Status Alfuzosin Hcl 10 Mg PO DAILY 03/02/09 Active Saw [place] Fruit 320 Mg PO DAILY 09/04/13 Active [Carafate] 1 G PO FOUR TIMES DAILY 09/04/13 Active [Viagra] 25 Mg PO NEEDED 09/04/13 Active Social History Social History Problem Response Recorded Date/Time Smoking Status Never smoker 09/04/2013 1:48pm Chewing Tobacco Status N 15 yrs ago 11/01/2011 11:51am Hx Substance Use No 09/04/2013 1:48pm Hx Alcohol Use Y 1-2/DAY 09/04/2013 1:48pm Has the pt used tobacco in the last 12 months No 09/04/2013 1:48pm Query Response Start Date Stop Date Smoking Status Never smoker Hospital Discharge Instructions No hospital discharge instructions. Plan of Care No plan of care. Functional Status No functional status results. Allergies, Adverse Reactions, Alerts Allergen Type Severity Reaction Status Last Updated NKDA Allergy Unknown Active 02/27/09 Immunizations Name Given Type Hx Influenza Vaccination Y Fall 2012 Historical Hx Pneumococcal Vaccination Y Fall 2009 Historical Hx Influenza Vaccination Y Fall 2012 Historical Vital Signs Acute Vital Signs Vital Response Date/Time Temperature (Fahrenheit) 97.4 deg F (96.8 - 99.1) Temperature (Calculated Celsius) 36.33239 degrees C (36.0 - 37.3) Temperature Source Temporal Pulse Rate (adult) 64 bpm (60 - 100) Respiratory Rate 16 breaths/min (10 - 20) O2 Sat by Pulse Oximetry 96 % (90 - 100) Blood Pressure 130/85 mm Hg Blood Pressure Source Automatic Cuff Height 6 ft 0 in Weight 153 lb Body Mass Index 20.0 kg/m^2 Results Test Source Date Result Interp. Ref. Range Comments Prostate Specific Antigen December 28, 2012 4:18pm 0.99 NG/ML N 0-4.0 Prostate Specific Antigen Screen June 19, 2010 10:57am 1.40 NG/ML N 0- 4.0 Lab Scanned Report December 28, 2012 8:00pm LAB TEST FORM REQUEST [id number] - Helicobacter pylori Rapid Urease Gastric Biopsy October 20, 2011 9:05am Procedures Procedure Status Date Provider(s) EGD (esophagogastroduodenoscopy) completed 09/05/13 GAMAL SCHMID MD
[2016-06-23 06:20] VITALS: BP 101/56; PULSE 73; RESP 16; TEMP 97.7; O2SAT 96; Ht 182.9 cm; Wt 71.2 kg
[2016-06-23 06:48] VITALS: PULSE 74; RESP 16
[2016-06-23] MEDS ORDERED: LIDOCAINE 1% (10mg/ml) 2ml SDV INJ ONE (07:00)
[2016-06-23] MEDS ORDERED: LR 1,000 ML IV SCH (07:00)
--- NOTE | 2016-06-23 07:34 | ANESPREOP ---
Anesthesia Record Date and Time DATE: 06/23/16 TIME: 07:32 Pre-Op Diagnosis juan j [facility]. [facility] Proposed Surgical Procedure EGD & COLONOSCOPY Allergies: Coded Allergies: NKDA (Verified Allergy, Unknown, 07/01/15) Ht/Wt/BMI Height: 6 ' 0.00 " Weight: 71.200 kg BMI: 21.3 kg/m2 Vital Signs Date Time Temp Pulse Resp B/P Pulse Ox O2 Delivery O2 Flow Rate FiO2 06/23/16 06:48 74 16 06/23/16 06:20 97.7 101/56 96 Room Air Medications Inpatient Medications Current Medications Medications (Trade) Dose Ordered Sig/Srinivas Start Time Stop Time Status Last Admin Dose Admin Lactated Ringer's (Lactated Ringers) 1,000 ml @ 50 mls/hr Q20H 06/23/16 07:00 06/23/16 07:30 50 MLS/HR Alfuzosin Hcl (Uroxatral) 10 Mg Tab.sr.24h, 10 MG PO DAILY, (Reported) Last Taken: on 06/22/16 1900 Carbidopa/Levodopa (Sinemet 25-100 mg Tablet) 1 Each Tablet, 2.5 TAB PO TID, (Reported) BEST ON AN EMPTY STOMACH. Last Taken: on 06/23/16 0500 Multivitamin (Multi-Day Vitamins) 1 Each Tablet , 1 TAB PO DAILY, (Reported) Last Taken: on 06/21/16 Rasagiline Mesylate (Azilect) 1 Mg Tablet, 1 TAB PO DAILY, (Reported) Last Taken: on 06/23/16 0500 Saw [place] Fruit (Saw [place]) 450 Mg Capsule, 1 CAP PO DAILY, (Reported) Last Taken: on 06/21/16 Sildenafil Citrate (Viagra) 100 Mg Tablet, 50 MG PRN , (Reported) Last Taken: on 06/21/16 Sucralfate (Carafate) 1 Gm Tablet, 1 G PO QID, ( Reported) Last Taken: on 06/22/161999 Currently on Beta Trisha: No Medical/Surgical History Anesthesia PMH: Reports: Arthritis, Asthma (HX OF A CHILD, NOTHING IN ADULT YEARS), Cancer (SKIN SCC), Hiatal Hernia, Reflux, Denies: *Angina (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 smoked today?: No Use Chewing Tobacco?: No Second Hand Exposure: No Substance Use Type: does not use Alcohol Intake: daily Last Drink: unknown Past Surgical History Orthopedic Surgeries: No Abdominal Surgeries: Yes - B ING HERNIA Genitourinary Surgeries: Yes - ELECTROFULGURATION PENILE WARTS 2005 Cardiac Surgeries: No Endocrine Surgeries: No Reproductive Surgeries: No Neurological Surgeries: No Ear Surgeries: No Nose Surgeries: Yes - RT MAXILLARY SINUS W/ TITANIUM PLATES AGE 58 Throat Surgeries: Yes - EGD Other Surgeries: Yes - COLONOSCOPY, SKIN CA REMOVED Anesthesia Adverse Reactions: FOUND none Family Hx of Anesthesia Advers: none Hx of Motion Sickness: No Pertinent Findings EKG Rhythm: Sinus Rhythm Physical Exam Respiratory: Bilat breath sounds equal, Lungs clear Cardiovascular: FOUND Regular rate, rhythm, FOUND No murmur Airway Assessment Mallampati Score: III TMD: 3 Fingerbreadths Neck Extension: Good Overall Assessment: No Airway Concerns ASA: 2 Plan Anesthesia Plan: TIVA Discussion Discussed risks/options/alternatives of anesthesia and questions answered. Patient consents. Nursing pain assessment noted. Present: Spouse Attestation Statement Prior to the delivery of any anesthetic medication, I examined the patient, developed the plan, obtained the patient's consent and discussed the risk and benefits of the procedure with the patient/guardian. NICCI PRADO CRNA June 23, 2016 07:34
[2016-06-23] MEDS ORDERED: LIDOCAINE 1% (10mg/ml) 2ml SDV ONE (07:48)
[2016-06-23] MEDS ORDERED: PROPOFOL 500mg 50 ML IV ONE (07:48)
[2016-06-23] MEDS ORDERED: LIDOCAINE VISCOUS 2% Oral Soln 15ml UD ONE (08:07)
[2016-06-23 08:48] VITALS: BP 97/57; PULSE 60; RESP 11; TEMP 97.1; O2SAT 96
[2016-06-23 09:03] VITALS: BP 108/66; PULSE 58; RESP 16; O2SAT 97
[2016-06-23 09:18] VITALS: BP 121/70; PULSE 56; RESP 16; TEMP 97.6; O2SAT 98
[2016-06-23 09:33] VITALS: BP 107/60; PULSE 60; RESP 14; O2SAT 97
--- NOTE | 2016-06-23 09:36 | ANESPO ---
Post-Op Note Date 06/23/16 Time: 09:35 Status Pt Participated in Evaluation: Pt participated in person Vital Signs Date Time Temp Pulse Resp B/P Pulse Ox O2 Delivery O2 Flow Rate FiO2 06/23/16 09:18 97.6 56 16 121/70 98 Room Air Respiratory Function: Airway patent, Regular respirations Cardiovascular Function: Regular pulse Mental Status: Alert/oriented Pain Level Intensity: 0 Hydration: Taking po fluids Complications during Recovery None apparent Post-Anesthesia Notes pt. [email or web address] well Follow-Up Instructions Instructions Per Surgeon Additional Information none NICCI PRADO CRNA June 23, 2016 09:36
--- NOTE | 2016-06-23 13:43 | OPNOTEF ---
DATE OF PROCEDURE: June 23, 2016 SURGEON: Srikanth Dominguez MD PREOPERATIVE DIAGNOSES Colorectal cancer surveillance/heme-positive stool. POSTOPERATIVE DIAGNOSES Colorectal cancer surveillance/heme-positive stool, colonic polyp located at 30 cm from the anal verge, mild diverticulosis. PROCEDURE: Colonoscopy with polypectomy via hot forceps technique. ANESTHESIA: TIVA. BRIEF HISTORY/INDICATIONS Theodore is a 70-year-old male patient of mine who was seen in the office for multiple issues. We found that he was mildly anemic. He also had heme-positive stool. Decision was made to proceed with combination EGD colonoscopy. Please refer to office notes for the details. FINDINGS Upon colonoscopy there was no evidence for angiodysplastic lesions or florencia malignancies. The patient was found to have mild diverticulosis. The patient was found to have a colonic polyp at 30 cm from the anal verge. No other significant pathology. DESCRIPTION OF PROCEDURE After informed consent was obtained, the patient was brought to the endoscopy suite and placed on the table in the left lateral decubitus position. The patient subsequently underwent total intravenous anesthesia by the nurse website project manager per my request. Next, a digital rectal examination was performed; normal sphincter tone. No rectal masses were appreciated. An Olympus colonoscope was inserted in the anus and advanced with the lumen of the colon under direct visualization at all times until the cecum was ascertained. Triangulation of the tenia coli, ileocecal valve and appendiceal lumen were all visualized. The scope was then slowly withdrawn, again while maintaining visualization of the lumen at all times. As stated above, the entire colon was without evidence for angiodysplastic lesions or florencia malignancies. The patient was found to have mild diverticulosis. The patient was found to have one colonic polyp at 30 cm from the anal verge. Photographs were obtained for documentation. The scope continued to be withdrawn until it was removed from the patient's anal verge. The patient tolerated the procedure without difficulty and was sent back to the preoperative area in stable condition. We did not find a cause for his anemia. He did have some impressive internal hemorrhoids which could explain the heme-positive stool. No significant pathology on this colonoscopy. [facility]
--- NOTE | 2016-06-23 14:00 | OPNOTEF ---
DATE OF PROCEDURE: 06/23/2016 SURGEON: Srikanth Dominguez MD PREOPERATIVE DIAGNOSIS History of Ugalde's esophagus. POSTOPERATIVE DIAGNOSIS History of Ugalde's esophagus/normal EGD. PROCEDURE: Esophagogastroduodenoscopy with biopsies. ANESTHESIA: IV sedation and local. BRIEF HISTORY/INDICATIONS Theodore is a 70-year-old patient of mine who has a history of Ugalde's esophagus. This was diagnosed several years ago and he has undergone multiple EGDs. The most recent EGD showed no signs of Ugalde's. For completeness please refer to office notes. FINDINGS Upon EGD the patient was found to have normal anatomy. There were no gastric polyps. No significant hiatal hernia. No significant inflammation. No florencia ulcerations. His distal esophagus/Z-line appeared normal to the naked eye. DESCRIPTION OF PROCEDURE After informed consent was obtained, the patient was brought to the operative suite and placed on the table in the left lateral decubitus position. Patient was then given Versed and Demerol intravenously in a titrated fashion to provide adequate sedation. Patient's oral hypopharynx was also anesthetized with Cetacaine [place] as well as viscous Lidocaine. Next, an Olympus gastroscope was inserted into the oral hypopharynx and subsequently the esophagus under direct visualization. The scope was advanced through the esophagus, stomach, pylorus, duodenal bulb, into the second portion of the duodenum. The scope was then slowly withdrawn. First and second portions of the duodenum were without noted abnormalities. There was no evidence for duodenitis nor florencia ulcerations. Scope was then withdrawn back into the prepyloric region. No abnormalities noted within the antrum. A J-maneuver was then performed. Cardia and fundus were without noted abnormalities. There was no evidence for significant hiatal hernia upon J-maneuver. The scope was then allowed to straighten and the remaining corpus of the stomach was well visualized without noted abnormalities. The scope was then withdrawn back to the level of the diaphragm which is also the level of the squamocolumnar junction. This appeared normal with no signs of Ugalde's. Multiple biopsies were taken of the distal esophagus/Z-line. I also did random biopsies throughout the esophagus. There was no evidence of stricture formation. Additionally, there was no evidence of ulcerations. The scope was then continued to be slowly withdrawn and the remaining esophagus was found to be within normal limits. The patient tolerated the procedure without difficulty and was sent back to the recovery room in stable condition. No followup specifically for this EGD. I will call Theodore with the results of the biopsies. TANAD
== END 2016-06-23 09:44 | disposition home or self-care (01) ==
LOC: NSC 06:11
PROVIDERS: ATTEND Family Medicine
DX: D12.6 Benign neoplasm of colon, unspecified (principal); K92.1 Melena; K64.8 Other hemorrhoids; K57.30 Diverticulosis of large intestine without perforation or abscess without bleeding; D64.9 Anemia, unspecified; K29.60 Other gastritis without bleeding; K21.0 Gastro-esophageal reflux disease with esophagitis; Z87.19 Personal history of other diseases of the digestive system; Z79.899 Other long term (current) drug therapy; G20 Parkinson's disease; N40.0 Benign prostatic hyperplasia without lower urinary tract symptoms
CPT/HCPCS: 43239; 45384; 87081; 88305; 88342; J7120